=== PATIENT | female | born 1980 | race Caucasian/White ===

== ENCOUNTER 2020-01-15 09:55 | Observation (INO) | payer OTHER ==
[~2020-01-15] VITALS: Ht 172.7 cm; Wt 131.5 kg
[2020-01-15 11:26] VITALS: BP 128/86
[2020-01-15] MEDS ORDERED: PREN-217 PO (11:32)
== END 2020-01-15 11:20 | disposition home or self-care (01) ==
LOC: 4S 09:55
PROVIDERS: ADMIT Obstetrics & Gynecology; ATTEND Obstetrics & Gynecology
DX: O09.523 Supervision of elderly multigravida, third trimester (principal); Z3A.36 36 weeks gestation of pregnancy
CPT/HCPCS: 81002; G0378

== ENCOUNTER 2020-01-18 08:45 | Observation (INO) | payer OTHER ==
[~2020-01-18] VITALS: Ht 172.7 cm; Wt 136.1 kg
[~2020-01-18 08:45] MED LIST: PREN-217 PO
[2020-01-18 09:39] VITALS: BP 138/88
== END 2020-01-18 09:30 | disposition home or self-care (01) ==
LOC: 4S 08:45
PROVIDERS: ADMIT Obstetrics & Gynecology; ATTEND Obstetrics & Gynecology
DX: O26.893 Other specified pregnancy related conditions, third trimester (principal); Z3A.35 35 weeks gestation of pregnancy

== ENCOUNTER 2020-01-22 08:40 | Observation (INO) | payer OTHER ==
[~2020-01-22] VITALS: Ht 172.7 cm; Wt 135.6 kg
[2020-01-22 09:00] VITALS: BP 123/70
[2020-01-22] MEDS ORDERED: PNV1TABL54 PO (09:11)
== END 2020-01-22 09:55 | disposition home or self-care (01) ==
LOC: 4S 08:40
PROVIDERS: ADMIT Obstetrics & Gynecology; ATTEND Obstetrics & Gynecology
DX: O09.523 Supervision of elderly multigravida, third trimester (principal); Z3A.35 35 weeks gestation of pregnancy; Z98.890 Other specified postprocedural states
CPT/HCPCS: 59025; G0378

== ENCOUNTER 2020-01-25 08:55 | Observation (INO) | payer OTHER ==
[~2020-01-25 08:55] MED LIST changes: +PNV1TABL54 PO
[2020-01-25 10:00] VITALS: BP 134/62
== END 2020-01-25 09:50 | disposition home or self-care (01) ==
LOC: 4S 08:55
PROVIDERS: ADMIT Obstetrics & Gynecology; ATTEND Obstetrics & Gynecology
DX: O26.893 Other specified pregnancy related conditions, third trimester (principal); Z3A.36 36 weeks gestation of pregnancy

== ENCOUNTER 2020-01-29 09:55 | Observation (INO) | payer OTHER ==
[2020-01-29 10:18] VITALS: BP 141/82
== END 2020-01-29 11:35 | disposition home or self-care (01) ==
LOC: 4S 09:55
PROVIDERS: ADMIT Obstetrics & Gynecology; ATTEND Obstetrics & Gynecology
DX: O09.523 Supervision of elderly multigravida, third trimester (principal); Z3A.36 36 weeks gestation of pregnancy
CPT/HCPCS: 59025; 81002; G0378

== ENCOUNTER 2020-02-01 09:46 | Observation (INO) | payer OTHER ==
[~2020-02-01] VITALS: Ht 172.7 cm; Wt 145.1 kg
[2020-02-01 10:05] VITALS: BP 158/82
[2020-02-01 11:12] LABS: CREATININE,URINE RANDOM 153.5 mg/dL (30.0-125.0)
[2020-02-01 11:27] LABS: BASOPHILS % (AUTO) 0.2 % (0.0-2.0); EOSINOPHILS % (AUTO) 0.7 % (1.0-6.0); HEMATOCRIT 38.3 % (36-46); HEMOGLOBIN 13.1 g/dL (12.0-16.0); LYMPHOCYTES % (AUTO) 20.1 % (22.0-44.0); MEAN CORPUSCULAR HEMOGLOBIN 32.2 pg (26.0-34.0); MEAN CORPUSCULAR HGB CONC 34.1 G/dL (31.0-37.0); MEAN CORPUSCULAR VOLUME 95 fL (80-100); MONOCYTES # (AUTO) 0.7 K/uL (0.1-1.0); NEUTROPHILS # (AUTO) 7.3 K/uL (1.8-7.7); PLATELET COUNT (AUTO)-OB 201 K/uL (150-450); RED BLOOD CELL COUNT(AUTO) 4.05 MIL/uL (4.00-5.20); RED CELL DISTRIBUTION WIDTH 13.4 % (11.5-14.5)
[2020-02-01 11:47] LABS: ANION GAP 8 mmol/L (8-16); CALCIUM, TOTAL 8.6 mg/dL (8.8-10.5); CARBON DIOXIDE 24 mmol/L (22-29); CHLORIDE 107 mmol/L (98-107); CREATININE 0.81 mg/dL (0.60-1.30); GLOMERULAR FILTR. RATE CALC > 60 mL/min (>60); GLUCOSE,RANDOM 86 mg/dL (70-110); SODIUM SERUM 139 mmol/L (136-145); UREA NITROGEN, BLOOD 11 mg/dL (7-18)
[2020-02-01 11:49] LABS: ALANINE AMINOTRANSFERASE 15 U/L (12-78); ALBUMIN 2.2 g/dL (3.4-5.0); ALKALINE PHOSPHATASE 96 U/L (46-116); ASPARTATE AMINOTRANSFERASE 15 U/L (15-37); BILIRUBIN,TOTAL 0.2 mg/dL (0.1-1.0); TOTAL PROTEIN, SERUM 6.4 g/dL (6.4-8.2); URIC ACID 6.3 mg/dL (2.6-7.2)
== END 2020-02-01 12:55 | disposition home or self-care (01) ==
LOC: 4S 09:46
PROVIDERS: ADMIT Obstetrics & Gynecology; ATTEND Obstetrics & Gynecology
DX: O13.3 Gestational [pregnancy-induced] hypertension without significant proteinuria, third trimester (principal); Z3A.37 37 weeks gestation of pregnancy
CPT/HCPCS: 36415; 59025; 80053; 82570; 84156; 84550; 85025; 96360; 96361; G0378

== ENCOUNTER 2020-02-05 09:54 | Observation (INO) | payer OTHER ==
[2020-02-05 10:29] VITALS: BP 138/90
[2020-02-05] MEDS ORDERED: MISOPROSTOL 50 MCG TABLET PO SCH (10:30)
== END 2020-02-05 10:50 | disposition home or self-care (01) ==
LOC: 4S 09:54
PROVIDERS: ADMIT Obstetrics & Gynecology; ATTEND Obstetrics & Gynecology
DX: O09.513 Supervision of elderly primigravida, third trimester (principal); Z3A.38 38 weeks gestation of pregnancy
CPT/HCPCS: 59025; 81001; G0378

== ENCOUNTER 2020-02-11 10:09 | Observation (INO) | payer OTHER ==
[~2020-02-11] VITALS: Ht 172.7 cm; Wt 145.6 kg
[2020-02-13 16:35] VITALS: BP 135/62
== END 2020-02-13 16:50 | disposition home or self-care (01) ==
LOC: 4S 02-13 16:00
PROVIDERS: ADMIT Obstetrics & Gynecology; ATTEND Obstetrics & Gynecology
DX: Z34.83 Encounter for supervision of other normal pregnancy, third trimester (principal); Z3A.38 38 weeks gestation of pregnancy
CPT/HCPCS: 59025; 81001; G0378

== ENCOUNTER 2020-02-15 21:00 | Inpatient (IN) | payer OTHER ==
[~2020-02-15] VITALS: Ht 172.7 cm; Wt 144.7 kg
[2020-02-15] MEDS ORDERED: OXYTOCIN 30 UNITS/LACT RINGERS 500 ML IV ONE (21:55)
[2020-02-15] MEDS ORDERED: RINGERS SOLUTION,LACTATED 1,000 ML IV PRN (21:55)
[2020-02-15] MEDS ORDERED: METOCLOPRAMIDE HCL 5 MG/ML 2 ML VIAL IVP PRN (22:00)
[2020-02-15] MEDS ORDERED: CITRIC ACID/SODIUM CITRATE 30 ML SOLUTION UDCUP PO PRN (22:00)
[2020-02-15] MEDS ORDERED: MISOPROSTOL 25 MCG TABLET PR ONE (22:00)
[2020-02-15 22:22] VITALS: BP 143/94
[2020-02-15 22:35] LABS: BASOPHILS % (AUTO) 0.6 % (0.0-2.0); EOSINOPHILS % (AUTO) 0.7 % (1.0-6.0); HEMATOCRIT 40.9 % (36-46); HEMOGLOBIN 13.5 g/dL (12.0-16.0); LYMPHOCYTES # (AUTO) 2.4 K/uL (1.0-4.8); LYMPHOCYTES % (AUTO) 20.7 % (22.0-44.0); MEAN CORPUSCULAR HEMOGLOBIN 30.7 pg (26.0-34.0); MEAN CORPUSCULAR VOLUME 93 fL (80-100); MONOCYTES # (AUTO) 0.8 K/uL (0.1-1.0); MONOCYTES % (AUTO) 6.7 % (2.0-9.0); NEUTROPHILS # (AUTO) 8.2 K/uL (1.8-7.7); NEUTROPHILS % (AUTO) 71.3 % (40.0-70.0); PLATELET COUNT (AUTO)-OB 230 K/uL (150-450); RED BLOOD CELL COUNT(AUTO) 4.39 MIL/uL (4.00-5.20); RED CELL DISTRIBUTION WIDTH 13.3 % (11.5-14.5)
[2020-02-15] MEDS: RINGERS SOLUTION,LACTATED 1,000 ML IV SCH (22:42)
[2020-02-15 22:48] LABS: ALANINE AMINOTRANSFERASE 15 U/L (12-78); ALBUMIN 2.4 g/dL (3.4-5.0); ALKALINE PHOSPHATASE 127 U/L (46-116); ANION GAP 9 mmol/L (8-16); ASPARTATE AMINOTRANSFERASE 14 U/L (15-37); BILIRUBIN,TOTAL 0.2 mg/dL (0.1-1.0); CALCIUM, TOTAL 9.1 mg/dL (8.8-10.5); CARBON DIOXIDE 23 mmol/L (22-29); CHLORIDE 104 mmol/L (98-107); CREATININE 0.92 mg/dL (0.60-1.30); GLOMERULAR FILTR. RATE CALC > 60 mL/min (>60); GLUCOSE,RANDOM 89 mg/dL (70-110); POTASSIUM 4.3 mmol/L (3.5-5.1); SODIUM SERUM 136 mmol/L (136-145); TOTAL PROTEIN, SERUM 6.7 g/dL (6.4-8.2); UREA NITROGEN, BLOOD 18 mg/dL (7-18); URIC ACID 6.3 mg/dL (2.6-7.2)
[2020-02-16] MEDS ORDERED: MISOPROSTOL 50 MCG TABLET PR ONE (02:30)
[2020-02-16] MEDS: FentaNYL CITRATE-PF 100 MCG/2 ML VIAL IVP PRN ×2 (03:40→10:12)
[2020-02-16] MEDS: RINGERS SOLUTION,LACTATED 1,000 ML IV SCH ×3 (05:53→20:30)
[2020-02-16] MEDS ORDERED: MISOPROSTOL 50 MCG TABLET PO ONE (07:00)
[2020-02-16] MEDS ORDERED: OXYGEN THERAPY IH SCH (08:00)
[2020-02-16] MEDS ORDERED: OXYTOCIN 30 UNITS/LACT RINGERS 500 ML IV PRN (11:19)
[2020-02-16] MEDS ORDERED: ROPIVACAINE HCL/PF 0.2% 100 ML ED ONE (13:15)
[2020-02-16] MEDS ORDERED: BUPIVACAINE HCL/PF 0.25% 10 ML VIAL ONE (13:15)
[2020-02-16] MEDS ORDERED: ONDANSETRON HCL 4 MG/2 ML VIAL IVP PRN (13:45)
[2020-02-16] MEDS ORDERED: NALBUPHINE HCL 10 MG/ML VIAL IVP PRN (13:45)
[2020-02-16] MEDS ORDERED: ROPIVACAINE HCL/PF 0.2% 100 ML ED PRN (13:45)
[2020-02-16] MEDS ORDERED: DiphenhydrAMINE HCL 50 MG/ML VIAL IVP PRN (13:45)
[2020-02-16] MEDS ORDERED: AMPICILLIN SODIUM 2 GM/NS 100 ML IV ONE (15:15)
[2020-02-16] MEDS ORDERED: AMPICILLIN SODIUM 1 GM/NS 50 ML IV SCH (19:15)
[2020-02-16] MEDS ORDERED: RINGERS SOLUTION,LACTATED 1,000 ML IV ONE (23:33)
[2020-02-16] MEDS ORDERED: GLYCERIN/WITCH HAZEL LEAF 40 PADS JAR TP PRN (23:45)
[2020-02-16] MEDS ORDERED: BENZOCAINE 20%/MENTHOL 56 GM SPRAY CANISTER TP PRN (23:45)
[2020-02-16] MEDS ORDERED: MEASLES/MUMPS/RUBELLA VACCINE, LIVE 0.5 ML/VIAL SQ ONE (23:45)
[2020-02-16] MEDS ORDERED: LANOLIN 7 GM OINTMENT TP PRN (23:45)
[2020-02-17] MEDS: IBUPROFEN 600 MG TABLET PO PRN ×4 (00:45→20:36)
[2020-02-17] MEDS ORDERED: MAGNESIUM HYDROXIDE SUSPENSION 30 ML UDCUP PO SCH (09:00)
[2020-02-17 14:45] VITALS: BP 133/69
[2020-02-17 15:13] LABS: BASOPHILS % (AUTO) 0.3 % (0.0-2.0); EOSINOPHILS % (AUTO) 0.7 % (1.0-6.0); HEMATOCRIT 36.8 % (36-46); HEMOGLOBIN 12.6 g/dL (12.0-16.0); LYMPHOCYTES # (AUTO) 2.3 K/uL (1.0-4.8); LYMPHOCYTES % (AUTO) 19.6 % (22.0-44.0); MEAN CORPUSCULAR HEMOGLOBIN 32.1 pg (26.0-34.0); MEAN CORPUSCULAR HGB CONC 34.1 G/dL (31.0-37.0); MEAN CORPUSCULAR VOLUME 94 fL (80-100); MONOCYTES # (AUTO) 0.7 K/uL (0.1-1.0); MONOCYTES % (AUTO) 5.9 % (2.0-9.0); NEUTROPHILS # (AUTO) 8.7 K/uL (1.8-7.7); NEUTROPHILS % (AUTO) 73.5 % (40.0-70.0); PLATELET COUNT (AUTO)-OB 195 K/uL (150-450); RED BLOOD CELL COUNT(AUTO) 3.91 MIL/uL (4.00-5.20); RED CELL DISTRIBUTION WIDTH 13.4 % (11.5-14.5)
[2020-02-17] MEDS ORDERED: IBUP-2071 PO (15:40)
[2020-02-17] MEDS ORDERED: DOCU-275 PO (15:42)
== END 2020-02-17 22:25 | disposition home or self-care (01) | DRG 807 ==
LOC: 4S 21:00 → OBSVTOIN 21:00
PROVIDERS: ADMIT Obstetrics & Gynecology; ATTEND Obstetrics & Gynecology
PROC: 10E0XZZ Delivery of Products of Conception, External Approach (ICD-10-PCS; principal; 2020-02-16)
PROC: 0KQM0ZZ Repair Perineum Muscle, Open Approach (ICD-10-PCS; 2020-02-16)
PROC: 10907ZC Drainage of Amniotic Fluid, Therapeutic from Products of Conception, Via Natural or Artificial Opening (ICD-10-PCS; 2020-02-16)
PROC: 3E033VJ Introduction of Other Hormone into Peripheral Vein, Percutaneous Approach (ICD-10-PCS; 2020-02-16)
PROC: 3E0R3BZ Introduction of Anesthetic Agent into Spinal Canal, Percutaneous Approach (ICD-10-PCS; 2020-02-16)
PROC: 00HU33Z Insertion of Infusion Device into Spinal Canal, Percutaneous Approach (ICD-10-PCS; 2020-02-16)
DX: O99.824 Streptococcus B carrier state complicating childbirth (principal); Z37.0 Single live birth; O99.214 Obesity complicating childbirth; E66.01 Morbid (severe) obesity due to excess calories; O70.1 Second degree perineal laceration during delivery; Z20.828 Contact with and (suspected) exposure to other viral communicable diseases; Z3A.39 39 weeks gestation of pregnancy
CPT/HCPCS: 84550; 85461; 86592; 86762; 86850; 86900; 86901; 87340; J0290; J2590; J2795; J3010; J3490; J7120